=== PATIENT | male | born 1985 | race Caucasian/White ===

== ENCOUNTER 2017-06-16 10:57 | Emergency (ER) | payer OTHER ==
[~2017-06-16] VITALS: Ht 177.8 cm; Wt 61.7 kg
[2017-06-16 11:05] VITALS: BP 123/101
== END 2017-06-16 12:37 | disposition left against medical advice (07) ==
LOC: ED 10:57
DX: Z53.21 Procedure and treatment not carried out due to patient leaving prior to being seen by health care provider (principal)

== ENCOUNTER 2017-06-20 11:11 | Emergency (ER) | payer OTHER ==
[2017-06-20 12:31] LABS: BASOPHIL % 0.5 % (0-2); PLATELET COUNT 215 x10^3mcL (130-400)
[2017-06-20 12:44] LABS: CALCIUM 9.1 mg/dL (8.5-10.1); CARBON DIOXIDE 30.5 mmol/L (21-32); CHLORIDE SERUM 101 mmol/L (98-107); CREATININE SERUM 1.1 mg/dL (0.7-1.3); GFR1 > 60 mL/min; GLUCOSE SERUM 85 mg/dL (74-106); POTASSIUM SERUM 3.7 mmol/L (3.5-5.1); SODIUM SERUM 138 mmol/L (136-145)
[2017-06-20 12:48] LABS: ALKALINE PHOSPHATASE 69 U/L (46-116); ALT/SGPT 19 U/L (16-63); AST/SGOT 15 U/L (15-37); BILIRUBIN TOTAL 1.2 mg/dL (0.20-1.00); LIPASE 118 IU/L (73-393)
[2017-06-20 12:49] LABS: TOTAL PROTEIN, SERUM 8.3 g/dL (6.4-8.2)
[2017-06-20 13:51] VITALS: BP 140/71
== END 2017-06-20 13:51 | disposition home or self-care (01) ==
LOC: ED 11:11
PROVIDERS: Emergency Medicine
DX: R10.13 Epigastric pain (principal); R19.7 Diarrhea, unspecified
CPT/HCPCS: 83880; J7030

== ENCOUNTER 2019-09-21 19:09 | Emergency (ER) | payer OTHER ==
[~2019-09-21] VITALS: Ht 177.8 cm; Wt 73.0 kg
[2019-09-21 19:23] VITALS: Ht 177.8 cm; Wt 73.0 kg
[2019-09-21 20:29] VITALS: BP 140/93
== END 2019-09-21 20:29 | disposition home or self-care (01) ==
LOC: ED 19:09
DX: S39.011A Strain of muscle, fascia and tendon of abdomen, initial encounter (principal); X58.XXXA Exposure to other specified factors, initial encounter; Y93.89 Activity, other specified; Y92.89 Other specified places as the place of occurrence of the external cause; Y99.8 Other external cause status; I47.1 Supraventricular tachycardia

== ENCOUNTER 2019-12-13 20:22 | Emergency (ER) | payer OTHER ==
[~2019-12-13] VITALS: Ht 172.7 cm; Wt 60.8 kg
[2019-12-13 20:41] VITALS: Ht 172.7 cm; Wt 60.8 kg
[2019-12-13 22:05] VITALS: BP 138/89
== END 2019-12-13 22:05 | disposition home or self-care (01) ==
LOC: ED 20:22
DX: G62.9 Polyneuropathy, unspecified (principal)